=== PATIENT | male | born 2000 | race Two or more races ===

== ENCOUNTER 2024-06-25 23:19 | Emergency (ER) | payer OTHER ==
[~2024-06-25] VITALS: Ht 182.9 cm; Wt 90.0 kg
[2024-06-26] MEDS: KETOROLAC TROMETH 60MG/2ML VIAL IM ONE (00:19)
[2024-06-26] MEDS ORDERED: IBUP-1455 PO (02:37)
[2024-06-26 04:01] VITALS: BP 129/75; PULSE 73; RESP 20; TEMP 98.1; O2SAT 97
== END 2024-06-26 04:02 | disposition home or self-care (01) ==
LOC: ER 23:19 → EDBD 23:19 → ER 23:33
DX: S16.1XXA Strain of muscle, fascia and tendon at neck level, initial encounter (principal); V89.2XXA Person injured in unspecified motor-vehicle accident, traffic, initial encounter; Y93.89 Activity, other specified; Y92.89 Other specified places as the place of occurrence of the external cause; Y99.8 Other external cause status
CPT/HCPCS: 72040; 96372; 99283; J1885